=== PATIENT | female | born 1990 | race African-American/Black ===

== ENCOUNTER 2019-02-05 23:37 | Emergency (ER) | payer SELFPAY ==
[~2019-02-05] VITALS: Ht 167.6 cm; Wt 140.9 kg
[2019-02-05 23:56] VITALS: Ht 167.6 cm; Wt 140.9 kg
[2019-02-06] MEDS ORDERED: CLEOCIN HCL300 MG PO (00:40)
[2019-02-06 01:11] VITALS: BP 148/89
== END 2019-02-06 01:11 | disposition home or self-care (01) ==
LOC: D.ER 23:37
DX: K04.7 Periapical abscess without sinus (principal)

== ENCOUNTER 2021-01-20 12:30 | Emergency (ER) | payer MEDICAID ==
[~2021-01-20] VITALS: Ht 167.6 cm; Wt 125.0 kg
[~2021-01-20 12:30] MED LIST: CLEOCIN HCL300 MG PO
[2021-01-20 12:33] VITALS: BP 112/43; Ht 167.6 cm; Wt 125.0 kg
[2021-01-20] MEDS ORDERED: PRENAVITE1 TAB PO (12:34)
--- NOTE | 2021-01-20 13:14 | NUR ---
THIS NURSE TO ER. PT ON EF WITH FHR 145-150. TOCO PLACED OVER FUNDUS. ABDOMEN PALPATES SOFT. PT STATES WORKING AT [employer]. STATES WAS STANDING, TAKING ORDERS WHEN PT STATES "PASSED OUT". STATES FELT DIZZY AND WAS SEEING SPOTS JUST PRIOR TO EPISODE. PT STATES FELL ONTO LEFT SIDE. DENIES FALLING ON ABDOMEN OR HITTING HEAD. DENIES CTX'S, ABDOMINAL PAIN, LEAKING FLUID OR VAGINAL BLEEDING. PT STATES FEELING BABY MOVE.
[2021-01-20 13:20] LABS: BASOPHILS 0.4 % (0-2); EOSINOPHILS 1.5 % (0-7); HEMATOCRIT 29.4 % (36.0-48.0); HEMOGLOBIN 9.7 g/dL (12-16); LYMPHOCYTES 21.2 % (15-50); MCH 30.1 pg (26.0-34.0); MCHC 33.1 g/dL (31.0-37.0); MONOCYTES 8.1 % (2-11); NEUTROPHILS 68.8 % (40-80); PLATELET COUNT 224 10x3/uL (130-400); RBC 3.24 10x6/uL (4.00-5.40); RDW 13.6 % (11.5-14.5); WBC 7.5 10x3/uL (4.8-10.8)
[2021-01-20 13:29] LABS: BILIRUBIN NEGATIVE (NEGATIVE); KETONE NEGATIVE (NEGATIVE); NITRITE NEGATIVE (NEGATIVE); UROBILINOGEN NORMAL mg/dL (< 2)
[2021-01-20 13:30] LABS: CALC OSMOLALITY 270 mosm/kg (275-300); CALCIUM 8.1 mg/dL (8.5-10.1); CARBON DIOXIDE 24.4 mmol/L (21.0-32.0); CHLORIDE - SERUM 105 mmol/L (98-107); CREATININE - SERUM 0.6 mg/dL (0.6-1.3); POTASSIUM - SERUM 4.3 mmol/L (3.5-5.1); SODIUM 137 mmol/L (136-145); UREA NITROGEN 9 mg/dL (7-18); eGFR NON AFRICAN AMERICAN > 90 mL/min (90-120)
[2021-01-20 13:31] LABS: GLUCOSE 64 mg/dL (74-106)
[2021-01-20 13:34] LABS: HCG SERUM POSITIVE (NEGATIVE)
--- NOTE | 2021-01-20 13:35 | NUR ---
DR DUFF NOTIFIED OF FHR BASELINE 150; MINIMAL VARIABILITY WITH OCCASSIONAL VARIABLE DECELS; NO CTX'S ON EFHM. NOTIFIED PT FELL ON LEFT SIDE, DID NOT HIT ABDOMEN; DENIES VAGINAL BLEEDING OR PAIN. REQUESTS AND RECEIVES [facility] TRACING SENT BY TEXT MESSAGE FOR DR DUFF TO VIEW.
[2021-01-20 13:41] LABS: ALBUMIN 2.6 g/dL (3.4-5.0); ALKALINE PHOSPHATASE 39 U/L (30-120); ALT (SGPT) 11 U/L (10-68); BILIRUBIN - TOTAL 0.18 mg/dL (0.2-1.3); PROTEIN - SERUM 6.5 g/dL (6.4-8.2)
--- NOTE | 2021-01-20 13:58 | NUR ---
DR DUFF MESSAGES THIS NURSE. STATES DR RUBIN WILL SEE PT NEXT WEEK-PT TO CALL FOR F/U APPOINTMENT. STATES PT CLEARED FROM OB STANDPOINT. ER PHYSICIAN NOTIFIED.
--- NOTE | 2021-01-20 14:00 | NUR ---
PT GIVEN [employer] PRECAUTIONS AND INSTRUCTED TO CALL [facility] FOR F/U APPOINTMENT NEXT WEEK WITH DR RUBIN. PT OFF MONITOR.
== END 2021-01-20 14:36 | disposition home or self-care (01) ==
LOC: D.ER 12:30
PROVIDERS: Family Medicine
DX: O26.892 Other specified pregnancy related conditions, second trimester (principal); R55 Syncope and collapse; Z3A.24 24 weeks gestation of pregnancy